=== PATIENT | female | born 1990 | race Caucasian/White ===

== ENCOUNTER 2022-09-29 19:48 | Emergency (ER) | payer BC, SELFPAY ==
[2022-09-29] MEDS ORDERED: Diazepam 5 MG TAB ONE (20:06)
[2022-09-29] MEDS ORDERED: HYDROcodone/Acetaminophen 10/325 mg Tablet ONE (20:06)
[2022-09-29] MEDS ORDERED: Ondansetron PF 4 MG/2 ML Vial ONE (20:06)
[2022-09-29] MEDS ORDERED: Ketorolac Tromethamine 30 MG/ML VIAL ONE (20:06)
[2022-09-29] MEDS ORDERED: predniSONE 20 MG TAB ONE (20:06)
[2022-09-29 21:32] LABS: Bilirubin Small (Negative); Blood, Urine Moderate (Negative); Clarity Clear (Clear); Glucose, Urine (Dipstick) Negative (Negative); Ketone, Urine > or equal to 80 mg/dL (Negative); Leukocyte Small (Negative); Nitrite Negative (Negative); Protein, Urine (Dipstick) 100 mg/dL (Neg-Trace); Specific Gravity, Urine 1.015 (1.005-1.030)
[2022-09-29 21:38] LABS: CAUTI Indications for Culture Dysuria,urgency,freq; WBC/HPF Greater Than 50 HPF (0-3)
[2022-09-29 21:39] LABS: Bacteria/HPF 1+ HPF (None Seen)
[2022-09-29 21:40] LABS: Urine Culture Reflex Yes Yes
[2022-09-29] MEDS ORDERED: cefTRIAXone (ROCEPHIN) 1 GM VIAL ONE (21:54)
[2022-09-29] MEDS ORDERED: Morphine 4 MG/ML VIAL ONE (22:06)
[2022-09-29 22:21] LABS: Anion Gap 16 mmol/L (10-20); BUN (Urea Nitrogen) 11 mg/dL (7.0-18.7); CK (CPK) 62 U/L (29-168); Calc. Creatinine Clearance 0 mL/min (70-130); Calcium 7.7 mg/dL (7.8-10.44); Carbon Dioxide 17 mmol/L (22-29); Chloride 108 mmol/L (98-107); Estimated GFR 94; Glucose 111 mg/dL (70-105); Potassium 3.6 mmol/L (3.5-5.1); Sodium 137 mmol/L (136-145)
== END 2022-09-29 22:59 | disposition home or self-care (01) ==
LOC: BURERS 19:48
DX: M54.50 Low back pain, unspecified (principal); N39.0 Urinary tract infection, site not specified; W16.42XA Fall into unspecified water causing other injury, initial encounter
CPT/HCPCS: 80048; 81001; 82550; 87077; 87086; 87186; 96361; 96365; 96375; J0696; J1885; J2270; J2405; J7512